=== PATIENT | male | born 1990 | race Caucasian/White ===

== ENCOUNTER 2016-10-23 03:53 | Emergency (ER) | payer BC, OTHER ==
[~2016-10-23] VITALS: Ht 172.7 cm; Wt 106.5 kg
[2016-10-23 03:55] VITALS: Ht 172.7 cm; Wt 106.5 kg
[2016-10-23] MEDS ORDERED: CYCL-319 PO (06:32)
[2016-10-23] MEDS ORDERED: HYDR-906 PO (06:32)
[2016-10-23] MEDS ORDERED: NAPR-260 PO (06:32)
--- NOTE | 2016-10-23 07:24 | ERD ---
DATE OF SERVICE: HISTORY OF PRESENT ILLNESS: The patient is a 26-year-old male coming in complaining of back pain fo r the last 4 days. He denies any trauma or injury. It hurts worse when he moves certain directions . He has no numbness or tingling. He is able to control his urination and bowel movements. No fev ers. He feels that he has been under more anxiety and stress than normal. He took a muscle relaxer the other today, which did not alleviate his symptoms. He has had back pain like this in the past; however, he feels like this is non-alleviating. He has not taken any pain medication. PAST MEDICAL HISTORY: Denies any medical problems. ALLERGIES TO MEDICATIONS: Denies. SURGICAL HISTORY: Denies. SOCIAL HISTORY: Smokes marijuana. REVIEW OF SYSTEMS: A 12-point review of systems was done. Refer to HPI for positives, all other sy stems negative. PHYSICAL EXAMINATION VITAL SIGNS: Temperature is 98.2, pulse 91, blood pressure is 143/91, respiratory rate 18, O2 satur ation 98% on room air. Pain intensity 9/10. GENERAL: The patient is well-appearing, well-nourished, no acute distress. HEART: Regular rate and rhythm. No murmurs, clicks, rubs or gallops. No S3 or S4. CHEST: Clear to auscultation bilaterally. There are no rales, wheezes or rhonchi. HEENT: Atraumatic. Conjunctivae are pink. Pupils equal, round, and reactive to light. There is no s cleral icterus. Tympanic membranes clear bilaterally. Oropharynx clear. No nystagmus or photophobia . ABDOMEN: Soft, nontender and nondistended. Good bowel sounds. No rebound or guarding. No gross christine tonitis. No gross organomegaly or masses. No Ibrahim sign or McBurney point tenderness. BACK: The patient has mild tenderness to palpation over bilateral paraspinous muscles, but no midli ne tenderness. EXTREMITIES: The patient has full range of motion. Normal extremity exam. DIAGNOSIS: Back pain, likely musculoskeletal. MEDICAL DECISION MAKING: I have low suspicion for cauda equina. Low suspicion for epidural abscess . Low suspicion for diskitis. Low suspicion for acute abdominal etiology radiating to the back, in cluding but not limited to AAA. DISCHARGE: The patient is discharged stable. Patient given a prescription for Preggers naproxen and Flexeril, and told to follow up with primary care within 1 to 2 days for reevaluation. The patient was told if symptoms progress or worsen to return to the ER. All other questions answered at time o f discharge. Discharge summary given at the time of departure. Patient understood and complied wit h plan. Dictated By: YAS CANTU for BRENT BAKER/CHRISTIANO Conf#: [id number] DID#: [id number]
== END 2016-10-23 06:48 | disposition home or self-care (01) ==
LOC: FTE 03:53
DX: M54.9 Dorsalgia, unspecified (principal)
CPT/HCPCS: 99284